=== PATIENT | female | born 1950 | race Caucasian/White ===

== ENCOUNTER → 2020-01-05 12:32 | Outpatient (CLI) | payer MEDICARE, SELFPAY ==
--- NOTE | ~2020-01-05 | CT_ITS ---
EXAMINATION: CT abdomen pelvis w con DATE: 01/05/2020 13:13 INDICATION: Low abdominal pain. Nausea. TECHNIQUE: Computed tomography (CT) of the abdomen and pelvis was performed with 100 cc Omnipaque 350 intravenous contrast. Automated exposure control and iterative reconstruction technique were employe d. Exam dose: 681.76 mGy-cm total exam DLP. COMPARISON: None. FINDINGS: The lung bases are clear of consolidation. Heart size is normal. No pericardial or pleural effusion. Small sliding hiatal hernia. There are scattered hepatic cysts measuring up to approximately 1.3 cm. Status post cholecystectomy. No bile duct or pancreatic duct dilatation. No pancreatic mass lesion or calcification. Normal splenic size. Normal morphology of the adrenal glands. No renal mass lesion. No urinary tract calculus or hydroureteronephrosis. The urinary bladder appears normal. Normal appendix. There is diverticulosis of the left and right colon. The colonic diverticula are particularly numerou s in the sigmoid colon. There is thickening of the wall of the distal sigmoid colon evidence of an approximately 1.6 x 2 cm p eripherally enhancing intramural probable abscess, with adjacent fat stranding, likely due to diverti culitis. Approximately 3.1 x 2.4 cm right adnexal cystic lesion is noted; continued imaging follow-up is recom mended considering the patient's postmenopausal status. Further evaluation with pelvic ultrasound or MR imaging might be considered if this finding does not resolve with treatment for diverticulitis. There is atherosclerotic calcification of the abdominal aorta but no aneurysm. No intraperitoneal or retroperitoneal or pelvic mass lesion or adenopathy or ascites is noted otherwise. Included skeletal structures are unremarkable. IMPRESSION: Sigmoid diverticulitis, including 1.6 x 2 cm intramural sigmoid: abscess, mild surroundi ng fat stranding Diverticulosis of left and right colon Approximately 3.1 x 2.47 and right adnexal cystic lesion; continue follow-up is recommended. If this does not resolve with treatment for diverticulitis, consider further evaluation with pelvic ultrasoun d and/or MR imaging. Small sliding hiatal hernia Status post cholecystectomy Hepatic cysts Reviewed, dictated and finalized at [facility]. Reviewed, dictated and finalized at [facility]. IMPRESSION: Sigmoid diverticulitis, including 1.6 x 2 cm intramural sigmoid: a bscess, mild surrounding fat stranding Diverticulosis of left and right colon Approximately 3.1 x 2.47 and right adnexal cystic lesion; continue follow-up is recommended. If this does not resolve with treatment for diverticulitis, consi charanjit further evaluation with pelvic ultrasound and/or MR imaging. Small sliding hiatal hernia Status post cholecystectomy Hepatic cysts
[2020-01-05 13:05] LABS: Estimated Glomerular Filt Rate > 60
== END ==
PROVIDERS: Visit Provider Physician Assistant
DX: K57.32 Diverticulitis of large intestine without perforation or abscess without bleeding (principal); K76.89 Other specified diseases of liver; Z90.49 Acquired absence of other specified parts of digestive tract
CPT/HCPCS: 36415; 74177; Q9967

== ENCOUNTER 2020-05-11 00:09 | Outpatient (CLI) | payer MEDICARE, SELFPAY ==
[2020-05-11 18:32] LABS: SARS-CoV-2 RNA PCR Negative
== END 2020-05-11 00:10 | disposition home or self-care (01) ==
LOC: ANHCOVIDDT 00:10
PROVIDERS: Visit Provider Surgery
DX: Z01.812 Encounter for preprocedural laboratory examination (principal); Z11.59 Encounter for screening for other viral diseases
CPT/HCPCS: 87635; C9803; U0003

== ENCOUNTER 2020-05-14 02:14 | Day surgery (SDC) | payer MEDICARE, SELFPAY ==
[2020-05-03 12:31] VITALS: BMI 30.2
--- NOTE | 2020-05-14 08:44 | PM.HPGS ---
History of Present Illness History of Present Illness Consent: Risks, benefits, and alternatives of a colonoscopy with possible biopsies have been discussed and questions answered. Patient agrees to proceed with procedure. Chief complaint: diverticulitis Narrative: Hodan Gilliam is a 69 year old white female that presents to the office at the request of KEVIN Reza for an evaluation of diverticulitis. Patient reports having abdominal cramping and bloating in the lower abdomen since 12/25/2019. She reports that when passes gas and having a BM caused pain. Patient reports that at first she was having hard stools but they gradually become soft and ribbon like. Patient had a CT of the abdomen and pelvis on 01/05/2020 at [facility] that showed sigmoid diverticulitis including 1.6 x 2 cm intramural sigmoid: abscess, mild surround fat stranding. Diverticulosis of left and right colon was also reported. Patient was put on Ciprofloxacin 500 mg BID and Metronidazole 500 mg BID since 01/05/2020. She reports since she has been taking the antibiotics she does feel better. She also reports she has been on a clear liquid diet since 01/05/2020 but reports she did start gradually advancing her diet to a low fiber diet and is tolerating this well. She reports having 2 BMs yesterday that were soft. Reports her last colonoscopy was competed about 2 years ago and believes she had diverticulosis and no polyps. we later obtain the colonoscopy report from 03/09/2017 and this confirms her feelings). Patient presents today for diagnostic colonoscopy. The will do biopsies if needed. If she has been feeling okay over the last 2 months. Prep went along unremarkable except for some cramping. Review of Systems Constitutional: Constitutional: Reports no additional constitutional complaints, Reports fatigue and Denies malaise Eyes: Eyes: Denies change in vision and Denies loss of vision ENT: Reports Normal hearing present, Denies change in voice, Denies dizziness, Denies hoarseness and Denies sore throat Cardiovascular: Cardiovascular: Denies chest pain, Denies leg edema and Denies dyspnea Respiratory: Respiratory: Denies cough, Denies dyspnea and Denies wheezing Gastrointestinal: Gastrointestinal: Denies hematochezia, Denies change in bowel habits and Denies heartburn Comments: Patient had an episode of diverticulitis earlier this year. Genitourinary: Genitourinary: Denies urinary frequency and Denies urinary incontinence Neurologic: Reports Normal hearing present, Denies confusion, Denies dizziness, Denies loss of vision, Denies memory loss and Denies seizure-like activity Psychiatric: Psychiatric: Denies confusion, Denies depression and Denies memory loss Endocrine: Endocrine: Denies cold intolerance and Reports fatigue Hematologic/Lymphatic: Hematologic/Lymphatic: Denies easy bleeding and Denies easy bruising Allergic/Immunologic: Allergic/Immunologic: Denies wheezing PMFSH Social History Social History Smoking status: Never smoker Alcohol intake: current Meds Home Medications and Allergies Home Medications Medication Instructions Recorded Confirmed Type alendronate 70 mg tablet 70 mg PO WEEKLY 12/14/19 05/14/20 History cholecalciferol (vitamin D3) 25 1,000 unit PO DAILY 12/14/19 05/14/20 History mcg (1,000 unit) tablet multivitamin 1 tablet PO DAILY 12/14/19 05/14/20 History Allergies Allergy/AdvReac Type Severity Reaction Status Date / Time latex AdvReac Mild ichy Verified 05/14/20 11:45 epinephrine AdvReac Unknown FELT LIKE Verified 05/14/20 11:45 AN ELEPHANT WAS STOMPING ON HER CHEST Exam Const: General: cooperative, healthy appearing, no acute distress, well developed and alert; No confusion Nutritional Appearance: well nourished Orientation/consciousness: patient oriented x3 and No confusion Limitations: no limitations HEN
[2020-05-14 11:40] VITALS: BP 154/63; PULSE 64; RESP 18; TEMP 37; O2SAT 100
--- NOTE | 2020-05-14 11:59 | P.PNAN_ITS ---
Anes - Initial Pre Proc Eval Procedure: Operation Date: 05/14/20 13:00 Proposed Procedures p Colonoscopy - Osmany Hernandez MD Date/Time: 05/14/20 11:59 Surgeon: Osmany Hernandez MD Pre Op Diagnosis: diverticulitis Patient Data Age: 69 Gender: F Height: 5 ft 2 in Weight: 72.3 kg Allergies Allergy/AdvReac Type Severity Reaction Status Date / Time latex AdvReac Mild ichy Verified 05/14/20 11:45 epinephrine AdvReac Unknown FELT LIKE Verified 05/14/20 11:45 AN ELEPHANT WAS STOMPING ON HER CHEST Home Medications Medication Instructions Recorded Confirmed Type alendronate 70 mg tablet 70 mg PO WEEKLY 12/14/19 05/14/20 History cholecalciferol (vitamin D3) 25 1,000 unit PO DAILY 12/14/19 05/14/20 History mcg (1,000 unit) tablet multivitamin 1 tablet PO DAILY 12/14/19 05/14/20 History Patient hx anesthesia problems: none Family hx anesthesia problems: none [facility] Social History Social History Smoking status: Never smoker Alcohol intake: current Anes - Eval Final PreProcedure Day of Procedure 05/14/20 11:59 Patient weight: normal Heart: regular rate and rhythm Lungs: clear to auscultation Airway: Mallampati scale class II Neurological: alert and oriented Last oral intake: >/= 8 hours ASA classification: II Emergent: no Anesthetic plan: proceed Anesthesia type and monitoring: general GIVS and standard monitoring Informed Consent: The patient's anesthetic plan and its attendant risks and benefits were discussed with the patient/family/POA. Questions were solicited and answers provided to the satisfaction of the patient/family/POA.
[2020-05-14] MEDS: LACTATED RINGERS 1,000 ML 150 ML IV CONT (12:02)
[2020-05-14 14:07] VITALS: BP 108/58; PULSE 61; RESP 21; O2SAT 97
[2020-05-14 14:17] VITALS: BP 117/60; PULSE 61; RESP 21; O2SAT 98
[2020-05-14 14:27] VITALS: BP 153/69; PULSE 60; RESP 14; O2SAT 99
== END 2020-05-14 14:55 | disposition home or self-care (01) ==
PROVIDERS: PCP Family Medicine; Visit Provider Surgery
PROC: 0DJD8ZZ Inspection of Lower Intestinal Tract, Via Natural or Artificial Opening Endoscopic (ICD-10-PCS; CPT 45378; principal; 2020-05-14 13:00)
DX: Z09 Encounter for follow-up examination after completed treatment for conditions other than malignant neoplasm (principal); K52.9 Noninfective gastroenteritis and colitis, unspecified; K57.30 Diverticulosis of large intestine without perforation or abscess without bleeding; Z87.19 Personal history of other diseases of the digestive system
CPT/HCPCS: 45380; 87635; 88305; C9803; J2001; J2704; J7120; U0003

== ENCOUNTER 2020-11-12 10:18 | Outpatient (CLI) | payer MEDICARE, SELFPAY ==
--- NOTE | ~2020-11-12 | MM_ITS ---
EXAMINATION: MM screening [facility] BI w dony HISTORY: Screening mammogram TECHNIQUE: Craniocaudal and mediolateral oblique 3-D tomosynthesis images were obtained and synthetic 2-D images were generated. CAD analysis was submitted and interpreted. COMPARISON: 03/03/2018, 02/08/2017, 11/23/2015 bilateral digital screening mammogram examinations BREAST PARENCHYMAL COMPOSITION: There are scattered areas of fibroglandular density. FINDINGS: Stable benign right intramammary lymph nodes. Minimal bilateral benign calcification. There is no evidence of suspicious mass, calcification, or architectural distortion to suggest malignancy in either breast. There has been no suspicious interval change. IMPRESSION: 1. No mammographic evidence of malignancy. 2. Recommend routine screening mammography in one year. BI-RADS Category 2: Benign finding(s). Reviewed, dictated and finalized at location [facility]. 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
== END 2020-11-12 10:19 | disposition home or self-care (01) ==
LOC: ANHIMG 10:21
PROVIDERS: PCP Family Medicine; Visit Provider Physician Assistant
DX: Z12.31 Encounter for screening mammogram for malignant neoplasm of breast (principal)
CPT/HCPCS: 77063; 77067

== ENCOUNTER → 2021-05-01 11:08 | Outpatient (CLI) | payer MEDICARE, SELFPAY ==
--- NOTE | ~2021-05-01 | US_ITS ---
EXAMINATION: US thyroid DATE: 05/01/2021 11:34 INDICATION: Neck pain. Dysphagia. TECHNIQUE: Multiple ultrasound images of the thyroid were obtained. COMPARISON: None. FINDINGS: The right thyroid lobe measures 6.1 x 3.0 x 1.3 cm. The left thyroid lobe measures 5.7 x 2.5 x 1.7 c m. In the right thyroid lobe, there is a 4.7 cm solid, isoechoic, xfpyr-dqll-[id number] nodule with smooth margin without echogenic foci (TI-RADS TR3). In the left thyroid lobe, there is a 3.7 cm solid, isoe choic, hqiqa-hlqy-tpvu nodule with ill-defined margin without echogenic foci (TR3). In the thyroid is thmus, there is a 3.6 cm solid, isoechoic, xydnj-lbek-ysew nodule with ill-defined margin without ech ogenic foci (TR3). IMPRESSION: 1. Multinodular goiter. Consider ultrasound-guided fine-needle aspiration of the 2 largest nodules. Reviewed, dictated and finalized at location [facility]. IMPRESSION: 1. Multinodular goiter. Consider ultrasound-guided fine-needle aspiration of th e 2 largest nodules.
== END ==
PROVIDERS: PCP Family Medicine; Visit Provider Family Medicine
DX: M54.2 Cervicalgia (principal); E04.2 Nontoxic multinodular goiter
CPT/HCPCS: 76536

== ENCOUNTER 2021-05-12 10:22 | Outpatient (CLI) | payer MEDICARE, SELFPAY ==
--- NOTE | ~2021-05-12 | US_ITS ---
EXAMINATION: US FNA w image guidance, US FNA additional DATE: 05/12/2021 11:46 INDICATION: Nontoxic thyroid nodules in the left and right thyroid lobes. TECHNIQUE: A time-out was performed to verify the patient's name, date of , and procedure to be performed . The procedure and its benefits and risks were discussed with the patient. Risks specifically discus sed included bleeding and infection. The patient understood the risks and agreed to proceed. The neck was prepped and draped in the usual sterile manner. Attention was first turned to the left thyroid n odule. 3 mL 1% lidocaine was used for local anesthesia. 6 passes were made with a 25G needle into th e lesion. Appropriate needle location was documented with continuous sonographic guidance. Attention was then turned to the right thyroid nodule. An additional 2 mm of 1% lidocaine was used for local a nesthesia. 6 passes were made with a 20 5G needle into the lesion. Appropriate needle location was do cumented with continuous sonographic guidance. Sterile bandages were applied. There were no immediat e complications. FINDINGS: Grayscale ultrasound images demonstrate biopsy needles advanced into a 4.3 cm TI RADS 3 solid nodule in the inferior left thyroid. On the prior study but was indicated as a 3.6 cm nodule at the isthmus appears on real-time imaging to represent a portion of the left thyroid nodule which extends across t he midline. Subsequent images demonstrate biopsy needles advanced into the previously noted 4.7 cm so lid TI RADS 3 nodule in the inferior right thyroid lobe. IMPRESSION: 1. Successful ultrasound-guided fine needle aspiration of the 4.7 cm TI RADS 3 right thyroid nodule and 4.3 cm TI RADS 3 left thyroid nodule. Reviewed, dictated and finalized at location [facility]. IMPRESSION: 1. Successful ultrasound-guided fine needle aspiration of the 4.7 cm TI RADS 3 right thyroid nodule and 4.3 cm TI RADS 3 left thyroid nodule.
== END 2021-05-12 10:23 | disposition home or self-care (01) ==
LOC: ANHIMG 10:27
PROVIDERS: PCP Family Medicine; Visit Provider Family Medicine
DX: E04.1 Nontoxic single thyroid nodule (principal)
CPT/HCPCS: 10005; 10006; 88173; 88305

== ENCOUNTER 2022-02-26 14:24 | Outpatient (CLI) | payer MEDICARE, SELFPAY ==
--- NOTE | ~2022-02-26 | MM_ITS ---
EXAMINATION: MM screening nargis BI w dony HISTORY: Screening mammogram TECHNIQUE: Craniocaudal and mediolateral oblique 3-D tomosynthesis images were obtained and synthetic 2-D images were generated. CAD analysis was submitted and interpreted. COMPARISON: No prior mammogram is available for comparison at this institution. BREAST PARENCHYMAL COMPOSITION: There are scattered areas of fibroglandular density. FINDINGS: Stable benign circumscribed intramammary lymph node in the posterior upper outer right [address]. There is no evidence of suspicious mass, calcification, or architectural distortion to suggest ma lignancy in either breast. There has been no suspicious interval change. IMPRESSION: 1. No mammographic evidence of malignancy. 2. Recommend routine screening mammography in one year. BI-RADS Category 2: Benign finding(s). Reviewed, dictated and finalized at location [facility].
== END 2022-02-26 14:25 | disposition home or self-care (01) ==
PROVIDERS: PCP Family Medicine; Visit Provider Family Medicine
DX: Z12.31 Encounter for screening mammogram for malignant neoplasm of breast (principal)
CPT/HCPCS: 77063; 77067

== ENCOUNTER 2022-11-05 08:11 | Outpatient (CLI) | payer MEDICARE, SELFPAY ==
[2022-11-05 19:24] LABS: Kit Draw Collected
== END 2022-11-05 08:12 | disposition home or self-care (01) ==
LOC: ANHGOSHLAB 08:14
PROVIDERS: PCP Family Medicine; Visit Provider Family Medicine
DX: E66.3 Overweight (principal); E78.00 Pure hypercholesterolemia, unspecified
CPT/HCPCS: 36415

== ENCOUNTER 2022-12-18 13:30 | Outpatient (RCR) | payer MEDICARE, SELFPAY ==
[2022-11-19 08:03] VITALS: BP_SYST 115; BP_SYST 90
--- NOTE | 2022-11-19 09:03 | PTOPEVAL1 ---
Assessment and note entered by Kade Patel, PT, DPT Evaluation Information Assessment Status Evaluation Diagnosis L arm pain Onset 1 month Subjective Information Pt states for about a month she has not been able to reach behind her back or reach over her head without an increase in pain. She report no ALFREDA. She states she watches her grandson and picks him up but does not recall a sudden start to her pain. Reported Pain Level Pain Score 5: Self Report Assessment PT Clinical Summary Hodan presents to therapy today for her initial evaluation with a diagnosis of a L biceps muscle strain. Today she demonstrates decreased active and passive shoulder motion lou, L > R. She demonstrates active shoulder flexion to 70 deg and abduction to 64 deg on the L, ROM is limited by pain. She also has decreased passive ROM lou. She has a positive painful arc of motion with increased upper trap activation with shoulder elevation. Skilled physical therapy services are indicated to address the deficits noted above, to manage pain, to improve function, and to return to baseline mobility. Plan of Care Interventions Electrical Stimulation,Hot Pack/Cold Pack,Manual Therapy,Neuro Re-education,Patient/Caregiver Educati,Therapeutic Activities,Therapeutic Exercise PT Services Indicated Yes Treatment Frequency and 2x/wk for 4 wks Duration These treatments will address the objective and functional deficits as defined above. The patient will be advanced safely and appropriately in order for the patient to progress towards his/her prior level of function. Additional exercises will be introduced and as well as a comprehensive home exercise program upon discharge, if needed, ?to ensure carryover of functional gains achieved in the clinic. This treatment plan has been reviewed and agreement upon by the patient.
--- NOTE | 2022-12-11 15:47 | PCPTNOTE ---
Patient reports she has to cancel due to family coming in.
[2022-12-18 13:31] VITALS: BP_SYST 115; BP_SYST 95
--- NOTE | 2022-12-18 14:35 | PTOPDC ---
Assessment and note entered by Kade Patel, PT, DPT Evaluation Information Assessment Status Discharge Diagnosis L arm pain Onset 1 month Subjective Information Pt states she feels like she is making very little progress. She states she is still getting sharp pains in her shoulder. She states she can only raise her arm up a little bit higher. She reports 10% improvement. Pt states she would like to follow up with ortho and get an MRI. Reported Pain Level Pain Score 0: Self Report Assessment PT Clinical Summary Hodan presents to therapy today for her progress report following 8 visits of skilled therapy to treat her lou shoulder pain. Today she demonstrates only minimal improvements in her active shoulder motion lou. She has make minimal towards her therapy goals and her pain has not progressed. She would like to follow up with her referring provider to get an ortho consult. She will be discharged at this time. Plan of Care PT Services Indicated No Treatment Frequency and to be discharged, following up with ortho Duration
== END 2022-12-18 15:41 | disposition home or self-care (01) ==
LOC: ANHGOSHPT 13:30
PROVIDERS: PCP Family Medicine; Visit Provider Nurse Practitioner
DX: S46.212D Strain of muscle, fascia and tendon of other parts of biceps, left arm, subsequent encounter (principal)
CPT/HCPCS: 97014; 97110; 97112; 97140; 97161; G0283

== ENCOUNTER → 2023-01-27 08:53 | Outpatient (CLI) | payer MEDICARE, SELFPAY ==
--- NOTE | ~2023-01-27 | MR_ITS ---
EXAMINATION: MR shoulder LT wo con DATE: 01/27/2023 09:55 INDICATION: Left shoulder pain. Rotator cuff tear. TECHNIQUE: Magnetic resonance imaging (MRI) of the left shoulder was performed without intravenous co ntrast. Sequences included axial PD-weighted FS FSE, coronal oblique PD-weighted FS FSE and T2-weight ed FS FSE, and sagittal oblique T2-weighted FS FSE and T1-weighted FSE. COMPARISON: Left shoulder radiographs 01/21/2023 FINDINGS: Coracoacromial arch: The acromion undersurface is curved in morphology (type II). There is severe acromioclavicular joint osteoarthritis. There is mild subacromial/subdeltoid bursitis. Rotator cuff: There is moderate supraspinatus tendinopathy and mild infraspinatus tendinopathy. Teres minor tendon is normal. There is mild subscapularis tendinopathy. The rotator cuff muscle bellies are normal. Biceps tendon and glenoid labrum: Biceps tendon is in bicipital groove. There is mild intra-articular biceps tendinopathy. There is deg enerative tearing of the glenoid labrum. Fluid: There is a small glenohumeral joint effusion. Bones/cartilage: There is cartilage surface irregularity of glenoid and humeral head. There are tiny osteophytes. IMPRESSION: 1. Moderate rotator cuff tendinopathy. No tear. 2. Mild glenohumeral joint chondrosis. 3. Severe acromioclavicular joint osteoarthritis. 4. Mild intra-articular biceps tendinopathy. 5. Small glenohumeral joint effusion. 6. Mild subacromial/subdeltoid bursitis. Reviewed, dictated and finalized at location A.
== END ==
PROVIDERS: PCP Family Medicine; Visit Provider Orthopaedic Surgery
DX: M19.012 Primary osteoarthritis, left shoulder (principal); M25.412 Effusion, left shoulder; M75.52 Bursitis of left shoulder
CPT/HCPCS: 73221

== ENCOUNTER 2023-03-01 07:47 | Outpatient (CLI) | payer MEDICARE, SELFPAY ==
--- NOTE | ~2023-03-01 | MM_ITS ---
EXAMINATION: MM screening [facility] BI w dony HISTORY: Screening mammogram TECHNIQUE: Craniocaudal and mediolateral oblique 3-D tomosynthesis images were obtained and synthetic 2-D images were generated. CAD analysis was submitted and interpreted. COMPARISON: 02/26/2022, 11/12/2020, 03/03/2018 BREAST PARENCHYMAL COMPOSITION: The breasts are almost entirely fatty. FINDINGS: No suspicious mass, calcification, or architectural distortion are identified in either albert ast to suggest malignancy. There has been no suspicious interval change. IMPRESSION: 1. No mammographic evidence of malignancy. 2. Recommend routine screening mammography in one year. BI-RADS Category 1: Negative Reviewed, dictated and finalized at location [facility].
--- NOTE | ~2023-03-01 | DEXA_ITS ---
Bone Density Report Name: KEATON LAUREN Age: 72 Sex: Female Ethnicity: White Date of : 1950 Indication: postmenopausal; screening for osteoporosis; height loss; Referring Provider: YONNY MCMAHAN Study: Bone densitometry was performed. Exam Date: March 01, 2023 Accession number: [id number] Bone Density: Region BMD T-score Z-score Classification AP Spine(L1-L4) 0.756 -2.6 -0.4 Osteoporosis Femoral Neck (Left) 0.791 -0.5 1.4 Normal Total Hip (Left) 0.977 0.3 1.9 Normal Femoral Neck (Right) 0.760 -0.8 1.1 Normal Total Hip (Right) 0.898 -0.4 1.2 Normal Total Hip Mean 0.937 -0.1 1.6 Normal World Health Organization criteria for BMD impression classify patients as: Normal (T-score at or above -1.0), Osteopenia (T-score between -1.0 and -2.5), or Osteoporosis (T-score at or below -2.5). 10-year Fracture Risk: FRAX not reported because: Some T-score for Spine Total or Hip Total or Femoral Neck at or below -2.5 Clinical Information Provided by Patient: Has used the following medications: Vitamin D, Calcium Patient maximum height was 63 Menopause Age: 43 Drinks caffeinated beverages Onset of menses at age 10 Number of children 2 Impression: The patient has osteoporosis, based on the Total Spine T-score. Discussion: INCREASED RISK OF FRACTURE. BONE DENSITY IS UNDESIRABLY LOW AT ONE OR MORE SKELETAL SITES, CONSISTENT WITH POSTMENOPAUSAL OSTEOPOROSIS. This patient's lowest T-score meets the World Health Organization's (WHO) criteria for osteoporosis at one or more sites (T-score -2.5 or below). In untreated patients, the risk of osteoporotic fracture increases approximately two-fold for each 1.0 SD decrease in T-score. Low bone density is not the only risk factor for fracture; also consider factors such as patient's age, frailty or poor health, risk of falling, risk of injury, previous osteoporotic fracture, family history of osteoporosis, cigarette smoking, low body weight, etc. Not everyone with low bone mineral density has osteoporosis; osteomalacia and other metabolic bone disorders should also be considered. Patients who have osteoporosis should be evaluated for specific diseases and conditions (secondary causes) that may cause or contribute to bone loss. The [place] [employer]ocrinologists (AACE) and National Osteoporosis Foundation (NOF) recommend pharmacologic intervention for all postmenopausal women whose T-score is in this range. The patient should follow a healthful lifestyle (good nutrition with adequate calcium and vitamin D, and appropriate weight-bearing exercise). Follow-Up: Consider a repeat BMD and Vertebral Fracture Assessment (VFA) exam in 2 years or sooner if medically necessary, to reassess this patient's status. Reported by: DO on 03/01/2023 8
== END 2023-03-01 07:48 | disposition home or self-care (01) ==
LOC: ANHIMG 07:48
PROVIDERS: PCP Family Medicine; Visit Provider Nurse Practitioner
DX: Z12.31 Encounter for screening mammogram for malignant neoplasm of breast (principal); Z78.0 Asymptomatic menopausal state; M81.0 Age-related osteoporosis without current pathological fracture
CPT/HCPCS: 77063; 77067; 77080

== ENCOUNTER 2023-03-02 08:29 | Outpatient (CLI) | payer MEDICARE, SELFPAY ==
[2023-03-02 14:04] LABS: Hematocrit 36.7 % (37.0-47.0); Hemoglobin 11.5 g/dL (12.0-15.0); Mean Corpuscular HGB Conc 31.3 g/dl (32-36); Mean Corpuscular Volume 95.8 fl (80-100); Mean Platelet Volume 10.6 fl (7.4-10.4); Platelet Count Result 326 k/mm3 (150-375); Red Blood Count 3.83 M/mm3 (4.2-5.4); Red Cell Distribution Width 13.8 % (11.5-14.5); White Blood Count 5.5 K/mm3 (4.5-10.0)
[2023-03-02 14:12] LABS: Alanine Aminotransferase 23 U/L (6-35); Albumin Level 4.1 g/dL (3.5-5.1); Alkaline Phosphatase 49 U/L (38-126); Anion Gap 5 mmol/L (8-16); Aspartate Amino Transferase 39 U/L (14-36); Bilirubin,Total 0.7 mg/dL (0.2-1.3); Blood Urea Nitrogen 13 mg/dL (7-17); Carbon Dioxide 29 mmol/L (22-30); Chloride 106 mmol/L (98-107); Cholesterol 210 mg/dL (0-200); Estimated Glomerular Filt Rate > 60; Glucose 89 mg/dL (65-110); HDL Direct 57 mg/dL; Potassium 4.3 mmol/L (3.4-5.0); Sodium 140 mmol/L (137-145); Triglycerides 110 mg/dL (<150)
[2023-03-02 14:23] LABS: LDL Cholesterol Direct 116 mg/dL
[2023-03-02 14:39] LABS: Vitamin D 25 Hydroxy 40.8 ng/mL
== END 2023-03-02 08:30 | disposition home or self-care (01) ==
LOC: ANHGOSHLAB 08:31
PROVIDERS: PCP Family Medicine; Visit Provider Family Medicine
DX: Z13.6 Encounter for screening for cardiovascular disorders (principal); E78.00 Pure hypercholesterolemia, unspecified; E55.9 Vitamin D deficiency, unspecified; E04.1 Nontoxic single thyroid nodule
CPT/HCPCS: 36415; 80053; 80061; 82306; 84443; 85027

== ENCOUNTER 2023-03-31 15:28 | Outpatient (CLI) | payer MEDICARE, SELFPAY ==
--- NOTE | 2023-03-31 15:34 | ECHO_ITS ---
Patient Info Name: Hodan Gilliam Age: 72 years : 1950 Gender: Female Ht: 62 in Wt: 158 lbs BSA: 1.79 m2 HR: 78 bpm BP: 137 / 74 mmHg Technical Quality: Good Exam Date: 03/31/2023 3:48 PM Exam Location: [facility] Patient Status: Outpatient Admit Date: 03/31/2023 Staff Ordering Physician: Gillian Koo APRN Crime Scene Evidence Technician: Autumn Greenfield RDCS Attending Provider: Gillian Koo APRN Referring Physician: Hanane HARRIS; Exam Type: CA echo doppler color flow Study Info Indications - palpitations Complete two-dimensional, color flow and Doppler transthoracic echocardiogram is performed. Summary 1. Complete two-dimensional, color flow and Doppler transthoracic echocardiogram is performed. 2. Left ventricular chamber dimension is normal. 3. Left ventricular systolic function is normal, estimated at 60-65%. 4. The left ventricular diastolic function is grade II diastolic dysfunction. 5. E/e' 18 is elevated. 6. Global longitudinal strain is normal at -21.6%. 7. Left atrial chamber dimension is mildly enlarged. 8. Bowing of the interatrial septum to the right by 2D and color flow imaging. 9. There is mild aortic valve regurgitation. 10. There is trace tricuspid valve regurgitation. 11. No pulmonary hypertension, estimated pulmonary arterial systolic pressure is 33 mmHg. Left Ventricle E/e' 18 is elevated. Global longitudinal strain is normal at -21.6%. Left ventricular chamber dimension is normal. Left ventricular systolic function is normal, estimated at 60-65%. The left ventricular diastolic function is grade II diastolic dysfunction. Right Ventricle Right ventricular chamber dimension is normal. Right ventricular systolic function is normal. Left Atria Left atrial chamber dimension is mildly enlarged. Right Atria Right atrial chamber dimension is normal. Atrial Septum No obvious interatrial shunt by color doppler. Bowing of the interatrial septum to the right by 2D and color flow imaging. Aortic Valve The aortic valve is trileaflet. There is no aortic valve stenosis. There is mild aortic valve regurgitation. Pulmonic Valve There is no pulmonic regurgitation. Mitral Valve There is no mitral valve stenosis. There is no mitral valve regurgitation. Tricuspid Valve There is trace tricuspid valve regurgitation. No pulmonary hypertension, estimated pulmonary arterial systolic pressure is 33 mmHg. Pericardium/Pleural There is no pericardial effusion. Inferior Vena Cava Normal inferior vena cava with >50% collapse upon inspiration consistent with normal right atrial pressure, 5 mmHg. Aorta The aortic root size at the sinus of Valsalva is normal. Left Ventricular Outflow Tract Name Value Normal LVOT 2D LVOT Diameter 2.0 cm LVOT Doppler LVOT Peak Gradient 8 mmHg LVOT Mean Gradient 5 mmHg LVOT VTI 32 cm LVOT VTI/AV VTI Ratio 1.0 LVOT Stroke Volume 97 ml LVOT CO 19.4 l/min LVOT CI 10.8 l/min/m2 Pulmonic Valve
== END 2023-03-31 15:29 | disposition home or self-care (01) ==
PROVIDERS: PCP Family Medicine; Visit Provider Nurse Practitioner Family
DX: R00.2 Palpitations (principal); I35.1 Nonrheumatic aortic (valve) insufficiency
CPT/HCPCS: 93306

== ENCOUNTER 2023-08-11 09:36 | Emergency (ER) | payer MEDICARE, SELFPAY ==
[2023-08-11] VITALS (7 sets, daily range): BP systolic 114–143; BP diastolic 56–73; PULSE 57–64; RESP 17–20; TEMP 36.6–36.7; O2SAT 94–99
[2023-08-11 10:24] LABS: Basophils Absolute Auto 0.1 K/mm3 (0.0-0.1); Eosinophils Absolute Auto 0.1 K/mm3 (0-0.3); Eosinophils Percent Auto 1.2 % (0-4.4); Hematocrit 37.8 % (37.0-47.0); Hemoglobin 12.3 g/dL (12.0-15.0); Immature Granulocyte Absolute 0.02 K/mm3 (0.00-0.031); Immature Granulocyte Percent A 0.3 % (0-0.5); Lymphocytes Absolute Auto 1.17 K/mm3 (0.9-3.2); Lymphocytes Percent Auto 19.2 % (18.3-44.2); Mean Corpuscular HGB Conc 32.5 g/dl (32-36); Mean Corpuscular Hemoglobin 29.9 pg (26-34); Mean Corpuscular Volume 91.7 fl (80-100); Mean Platelet Volume 10.3 fl (7.4-10.4); Monocytes Absolute Auto 0.8 K/mm3 (0.1-0.6); Monocytes Percent Auto 13.8 % (2.6-8.5); Neutrophils Absolute Auto 3.9 K/mm3 (1.3-6.7); Neutrophils Percent Auto 64.5 % (45.5-73.1); Platelet Count Result 268 k/mm3 (150-375); Red Blood Count 4.12 M/mm3 (4.2-5.4); Red Cell Distribution Width 13.6 % (11.5-14.5); White Blood Count 6.1 K/mm3 (4.5-10.0)
[2023-08-11 10:36] LABS: Alanine Aminotransferase 21 U/L (6-35); Albumin Level 4.4 g/dL (3.5-5.1); Alkaline Phosphatase 46 U/L (38-126); Anion Gap 9 mmol/L (8-16); Aspartate Amino Transferase 27 U/L (14-36); Bilirubin,Total 0.6 mg/dL (0.2-1.3); Blood Urea Nitrogen 12 mg/dL (7-17); Calcium 9.3 mg/dL (8.4-10.2); Carbon Dioxide 19 mmol/L (22-30); Chloride 108 mmol/L (98-107); Estimated Glomerular Filt Rate > 60; Glucose 134 mg/dL (65-110); Lipase 35 U/L (23-300); Potassium 4.1 mmol/L (3.4-5.0); Sodium 136 mmol/L (137-145)
--- NOTE | 2023-08-11 10:40 | ECG_ITS ---
Measurements Intervals [place] Rate: 59 P: 23 [place]: 165 QRS: -39 QRSD: 129 T: 12 QT: 412 QTc: 410 Interpretive Statements SINUS BRADYCARDIA LEFT AXIS DEVIATION [QRS AXIS < -30] RIGHT BUNDLE BRANCH BLOCK [120+ ms QRS DURATION, UPRIGHT V1, 40+ ms S IN I/aVL/V4/V5/V6] ABNORMAL ECG NO PREVIOUS ECG AVAILABLE FOR COMPARISON Electronically Signed On 08-11-2023 18:28:49 CDT by Jerald Curry M.D.
--- NOTE | 2023-08-11 15:13 | ED.GENADULT ---
HPI - General Adult General Chief complaint: Nausea/Vomiting/Diarrhea Stated complaint: weak/vomiting/diarrhea/sob Time Seen by Provider: 08/11/23 14:36 History of Present Illness HPI narrative: 73-year-old female present to the emergency department for evaluation of nausea vomiting and diarrhea. Patient reports that the symptoms started this morning. Patient states when she was having emesis she was having some abdominal cramping but denies any current abdominal pain. Patient reports he also had associated cough. Patient states that her family members have also had similar cough and cold symptoms. Patient has not tested herself for COVID. Related Data Home Medications Medication Instructions Recorded Confirmed cholecalciferol (vitamin D3) 25 1,000 unit PO DAILY 12/14/19 04/21/23 mcg (1,000 unit) tablet multivitamin 1 tablet PO DAILY 12/14/19 04/21/23 lactobacillus combination no.9 4 4,000 mmu cells PO DAILY 12/19/20 04/21/23 billion cell capsule (Adult 50 Plus Probiotic) magnesium tablet PO 12/19/20 04/21/23 omega-3 fatty acids 1,250 mg 1,250 mg PO DAILY 12/19/20 04/21/23 capsule Allergies Allergy/AdvReac Type Severity Reaction Status Date / Time latex AdvReac Mild ichy Verified 08/11/23 14:53 epinephrine AdvReac Unknown FELT LIKE Verified 08/11/23 14:53 AN ELEPHANT WAS STOMPING ON HER CHEST Review of Systems Review of Systems: All systems reviewed & are unremarkable except as noted in HPI and below PMFSH Past Medical History Medical History Age related osteoporosis Elevated AST (SGOT) Heart palpitations Hepatitis C antibody test negative (08/31/17) History of hepatitis Left shoulder pain Sinusitis, acute Surgical History Surgical History History of tubal ligation (~1977) 42 years ago Hx of cholecystectomy (~2011) Family History Family History Mother Hemorrhage tube burst and had a hemorrhage Social History Social History Years smoked: 20 Smoking status: Former smoker Tobacco type: cigarettes Second hand tobacco smoke exposure: No Alcohol intake: never Substance use: never Substance use type: does not use Lack of Transportation: No Lack of Food: Never True Current Housing: I Have Housing Concerned About Future Housing: No Difficulty Paying Gas/Electric Bills: No Difficulty Paying for Meds: No Currently Unemployed: No Education: Trade/Vocational Certificate Difficulty w/ Childcare or Family Care: No Living arrangements: with family Additional living arrangements comments: Occupation/Education: retired Gender identity (if verbalized by the patient): Female Sexual Orientation (if Verbalized by the Patient): Straight or Heterosexual Agree to blood products: Yes Exam Narrative: APPEARANCE: Well appearing, no pain, no distress, well-nourished. HEAD: normocephalic, atraumatic. EYES: PERRLA/EOMI, conjunctivae clear. NOSE: Normal no drainage EARS:TMS clear with good light reflex. THROAT: Pharynx clear, no exudate. NECK: Supple. No adenopathy, no masses. RESPIRATORY: Airway patent, respirations nonlabored. Clear to auscultation bilaterally, no rales, rhonchi, wheezing. CARDIOVASCULAR: Regular rate and rhythm without murmurs rubs or gallops. ABDOMINAL: Soft, nontender, nondistended, normal bowel sounds MUSCULOSKELETAL: Moves all extremities. Strength/ROM intact, No edema, No calf tenderness. NEURO: Alert. Cranial nerves II through XII intact. Grossly intact SKIN: Warm, dry. Normal Color Course Course Emergency Course: 71-year-old female present emerged department for evaluation of cough congestion and nausea vomiting. Patient's nausea vomiting was improved in the ED
[2023-08-11] MEDS: SODIUM CHLORIDE 0.9% IV 1,000 ML 999 ML IV CONT (15:15)
[2023-08-11] MEDS: ONDANSETRON INJ 4 MG/2 ML VIAL IV PUSH (15:15)
[2023-08-11 15:40] LABS: Influenza A QL RT-PCR Negative (Negative); Influenza B QL RT-PCR Negative (Negative); SARS-CoV-2 RNA PCR Positive (Negative)
== END 2023-08-11 16:52 | disposition home or self-care (01) ==
PROVIDERS: Emergency Provider Emergency Medicine; PCP Family Medicine
DX: U07.1 COVID-19 (principal); R11.2 Nausea with vomiting, unspecified; Z87.891 Personal history of nicotine dependence; Z20.822 Contact with and (suspected) exposure to COVID-19
CPT/HCPCS: 36415; 80053; 83690; 85025; 87636; 93005; 96361; 96374; 99284; J2405; J7030

== ENCOUNTER 2023-09-02 08:21 | Outpatient (CLI) | payer MEDICARE, SELFPAY ==
[2023-09-02 11:58] LABS: Basophils Absolute Auto 0.1 K/mm3 (0.0-0.1); Basophils Percent Auto 0.9 % (0.2-1.2); Eosinophils Absolute Auto 0.3 K/mm3 (0-0.3); Eosinophils Percent Auto 3.9 % (0-4.4); Hematocrit 38.1 % (37.0-47.0); Immature Granulocyte Absolute 0.01 K/mm3 (0.00-0.031); Immature Granulocyte Percent A 0.1 % (0-0.5); Lymphocytes Absolute Auto 1.94 K/mm3 (0.9-3.2); Lymphocytes Percent Auto 27.8 % (18.3-44.2); Mean Corpuscular HGB Conc 31.5 g/dl (32-36); Mean Corpuscular Hemoglobin 30.3 pg (26-34); Mean Corpuscular Volume 96.2 fl (80-100); Mean Platelet Volume 10.8 fl (7.4-10.4); Monocytes Absolute Auto 0.7 K/mm3 (0.1-0.6); Monocytes Percent Auto 9.6 % (2.6-8.5); Neutrophils Percent Auto 57.7 % (45.5-73.1); Platelet Count Result 347 k/mm3 (150-375); Red Blood Count 3.96 M/mm3 (4.2-5.4); Red Cell Distribution Width 13.4 % (11.5-14.5)
[2023-09-02 12:37] LABS: Alanine Aminotransferase 17 U/L (6-35); Albumin Level 4.4 g/dL (3.5-5.1); Alkaline Phosphatase 43 U/L (38-126); Anion Gap 8 mmol/L (8-16); Aspartate Amino Transferase 46 U/L (14-36); Bilirubin,Total 0.7 mg/dL (0.2-1.3); Blood Urea Nitrogen 19 mg/dL (7-17); Calcium 9.5 mg/dL (8.4-10.2); Carbon Dioxide 26 mmol/L (22-30); Chloride 106 mmol/L (98-107); Cholesterol 200 mg/dL (0-200); Estimated Glomerular Filt Rate > 60; Glucose 96 mg/dL (65-110); HDL Direct 46 mg/dL; Potassium 4.9 mmol/L (3.4-5.0); Sodium 140 mmol/L (137-145); Triglycerides 97 mg/dL (<150); Vitamin D 25 Hydroxy 23.9 ng/mL
[2023-09-02 12:52] LABS: LDL Cholesterol Direct 111 mg/dL
[2023-09-02 12:54] LABS: Thyroid Stimulating Hormone 0.925 uIU/mL (0.465-4.680)
[2023-09-02 16:59] LABS: Hemoglobin A1C 5.3 % (<5.7)
== END 2023-09-02 08:22 | disposition home or self-care (01) ==
PROVIDERS: PCP Family Medicine; Visit Provider Nurse Practitioner Family
DX: Z00.00 Encounter for general adult medical examination without abnormal findings (principal); Z13.29 Encounter for screening for other suspected endocrine disorder; I10 Essential (primary) hypertension; Z13.220 Encounter for screening for lipoid disorders; R73.03 Prediabetes; E55.9 Vitamin D deficiency, unspecified
CPT/HCPCS: 36415; 80053; 80061; 82306; 83036; 84443; 85025

== ENCOUNTER 2024-04-03 08:28 | Outpatient (CLI) | payer MEDICARE, SELFPAY ==
[2024-04-03 14:59] LABS: Basophils Absolute Auto 0.1 K/mm3 (0.0-0.1); Basophils Percent Auto 0.9 % (0.2-1.2); Eosinophils Absolute Auto 0.3 K/mm3 (0-0.3); Eosinophils Percent Auto 4.1 % (0-4.4); Hematocrit 38.6 % (37.0-47.0); Hemoglobin 11.9 g/dL (12.0-15.0); Immature Granulocyte Absolute 0.01 K/mm3 (0.00-0.031); Immature Granulocyte Percent A 0.2 % (0-0.5); Lymphocytes Absolute Auto 1.78 K/mm3 (0.9-3.2); Lymphocytes Percent Auto 26.8 % (18.3-44.2); Mean Corpuscular HGB Conc 30.8 g/dl (32-36); Mean Corpuscular Hemoglobin 30.2 pg (26-34); Mean Platelet Volume 11.3 fl (7.4-10.4); Monocytes Absolute Auto 0.7 K/mm3 (0.1-0.6); Monocytes Percent Auto 10.1 % (2.6-8.5); Neutrophils Absolute Auto 3.8 K/mm3 (1.3-6.7); Neutrophils Percent Auto 57.9 % (45.5-73.1); Platelet Count Result 321 k/mm3 (150-375); Red Blood Count 3.94 M/mm3 (4.2-5.4); Red Cell Distribution Width 14.2 % (11.5-14.5); White Blood Count 6.6 K/mm3 (4.5-10.0)
[2024-04-03 16:28] LABS: Vitamin D 25 Hydroxy 37.2 ng/mL
[2024-04-03 17:25] LABS: Alanine Aminotransferase 16 U/L (6-35); Albumin Level 4.3 g/dL (3.5-5.1); Alkaline Phosphatase 43 U/L (38-126); Anion Gap 5 mmol/L (4-12); Aspartate Amino Transferase 55 U/L (14-36); Bilirubin,Total 0.6 mg/dL (0.2-1.3); Blood Urea Nitrogen 16 mg/dL (7-17); Calcium 8.9 mg/dL (8.4-10.2); Carbon Dioxide 26 mmol/L (22-30); Chloride 108 mmol/L (98-107); Cholesterol 192 mg/dL (0-200); Estimated Glomerular Filt Rate > 60; Glucose 87 mg/dL (65-110); HDL Direct 52 mg/dL; Potassium 4.4 mmol/L (3.4-5.0); Sodium 139 mmol/L (137-145); Triglycerides 115 mg/dL (<150)
[2024-04-03 17:36] LABS: LDL Cholesterol Direct 114 mg/dL
[2024-04-03 19:46] LABS: Hemoglobin A1C 5.1 % (<5.7)
== END 2024-04-03 08:29 | disposition home or self-care (01) ==
LOC: ANHGOSHLAB 08:29
PROVIDERS: PCP Family Medicine; Visit Provider Nurse Practitioner Family
DX: Z00.00 Encounter for general adult medical examination without abnormal findings (principal); E55.9 Vitamin D deficiency, unspecified; Z13.220 Encounter for screening for lipoid disorders; R73.03 Prediabetes
CPT/HCPCS: 36415; 80053; 80061; 82306; 83036; 85025

== ENCOUNTER 2024-09-07 15:24 | Outpatient (CLI) | payer MEDICARE, SELFPAY ==
--- NOTE | ~2024-09-07 | MM_ITS ---
EXAMINATION: MM screening nargis BI w dony HISTORY: Screening mammogram TECHNIQUE: Craniocaudal and mediolateral oblique 3-D tomosynthesis images were obtained and synthetic 2-D images were generated. CAD analysis was submitted and interpreted. COMPARISON: 03/01/2023 02/26/2022, 11/12/2020 BREAST PARENCHYMAL COMPOSITION:Not Dense. The breasts are almost entirely fatty FINDINGS: No suspicious mass, calcification, or architectural distortion are identified in either albert ast to suggest malignancy. There has been no suspicious interval change. IMPRESSION: No mammographic evidence of malignancy. Recommend routine screening mammography in one year. BI-RADS Category 1: Negative Reviewed, dictated and finalized at location . NICAL SALES SUPPORT SPECIALIST
== END 2024-09-07 15:25 | disposition home or self-care (01) ==
PROVIDERS: PCP Family Medicine; Visit Provider Nurse Practitioner
DX: Z12.31 Encounter for screening mammogram for malignant neoplasm of breast (principal)
CPT/HCPCS: 77063; 77067

== ENCOUNTER 2024-09-19 07:01 | Outpatient (CLI) | payer MEDICARE, SELFPAY ==
--- NOTE | ~2024-09-19 | MR_ITS ---
EXAMINATION: MR hip LT wo con DATE: 09/19/2024 07:56 INDICATION: Left hip pain. TECHNIQUE: Magnetic resonance imaging (MRI) of the left hip was performed without intravenous contras t. COMPARISON: left hip radiographs 07/24/24 FINDINGS: Bones/cartilage: There is thoracolumbar levoscoliosis. There is mild lumbar spondylosis. There is an 11 mm lesion of i ncreased T2-weighted signal intensity in intertrochanteric region of proximal left femur. The hip joel nts demonstrate tiny osteophytes. Small [id number] images of left hip demonstrate partial-thicknes s cartilage loss. Labrum: There is a tear of the left acetabular labrum. Fluid: There is no hip joint effusion. There is moderate bilateral trochanteric bursitis. Soft tissues: There is diverticulosis of the colon without evidence of diverticulitis. There is a 3.6 cm cyst in th e right adnexa, likely benign. There are partial tears of the hamstring origins bilaterally. There is a partial tear of right gluteus minimus tendon. The gluteus medius tendon is normal. There is a part ial tear of left gluteus minimus tendon. There is mild left gluteus medius tendinopathy. IMPRESSION: 1. Mild osteoarthritis of the hips. 2. Partial tears of the bilateral gluteus minimus tendons and hamstring tendon origins. 3. Moderate bilateral trochanteric bursitis. 4. 11 mm lesion in intertrochanteric region of proximal left femur. In the absence of known malignanc y, this is likely a benign lesion such as an enchondroma or fibrous dysplasia. 5. 3.6 cm cyst in the right adnexa, likely benign. Pelvis ultrasound is recommended in one year. Reviewed, dictated and finalized at location A. [employer] IMPRESSION: 1. Mild osteoarthritis of the hips. 2. Partial tears of the bilateral gluteus minimus tendons and hamstring tendon origins. 3. Moderate bilateral trochanteric bursitis. 4. 11 mm lesion in intertrochanteric region of proximal left femur. In the abse nce of known malignancy, this is likely a benign lesion such as an enchondroma or fibrous dysplasia. 5. 3.6 cm cyst in the right adnexa, likely benign. Pelvis ultrasound is recomme nded in one year.
== END 2024-09-19 07:02 | disposition home or self-care (01) ==
LOC: MICIMG 07:01
PROVIDERS: PCP Family Medicine; Visit Provider Nurse Practitioner Family
DX: M16.0 Bilateral primary osteoarthritis of hip (principal); M70.62 Trochanteric bursitis, left hip; M70.61 Trochanteric bursitis, right hip
CPT/HCPCS: 73721

== ENCOUNTER 2024-10-06 08:53 | Outpatient (CLI) | payer MEDICARE, SELFPAY ==
[2024-10-06 14:01] LABS: Alanine Aminotransferase 19 U/L (6-35); Albumin Level 4.2 g/dL (3.5-5.1); Alkaline Phosphatase 47 U/L (38-126); Anion Gap 3 mmol/L (4-12); Aspartate Amino Transferase 60 U/L (14-36); Bilirubin,Total 0.6 mg/dL (0.2-1.3); Blood Urea Nitrogen 21 mg/dL (7-17); Carbon Dioxide 28 mmol/L (22-30); Chloride 107 mmol/L (98-107); Cholesterol 186 mg/dL (0-200); Estimated Glomerular Filt Rate > 60; Glucose 91 mg/dL (65-110); HDL Direct 59 mg/dL; Potassium 4.3 mmol/L (3.4-5.0); Sodium 138 mmol/L (137-145); Triglycerides 79 mg/dL (<150)
[2024-10-06 14:12] LABS: LDL Cholesterol Direct 91 mg/dL
[2024-10-06 14:18] LABS: Hemoglobin A1C 5.5 % (<5.7)
[2024-10-06 14:27] LABS: Vitamin D 25 Hydroxy 36.1 ng/mL
== END 2024-10-06 08:54 | disposition home or self-care (01) ==
PROVIDERS: PCP Family Medicine; Visit Provider Nurse Practitioner
DX: E78.00 Pure hypercholesterolemia, unspecified (principal); E55.9 Vitamin D deficiency, unspecified; R73.03 Prediabetes
CPT/HCPCS: 36415; 80053; 80061; 82306; 83036

== ENCOUNTER 2024-11-14 08:41 | Outpatient (CLI) | payer MEDICARE, SELFPAY ==
[2024-11-15 11:24] LABS: CA-125 12 U/mL (<35)
== END 2024-11-14 08:42 | disposition home or self-care (01) ==
PROVIDERS: PCP Family Medicine; Visit Provider Nurse Practitioner Obstetrics & Gynecology
DX: N83.209 Unspecified ovarian cyst, unspecified side (principal)
CPT/HCPCS: 36415; 86304

== ENCOUNTER 2024-11-14 09:01 | Outpatient (CLI) | payer MEDICARE, SELFPAY ==
--- NOTE | ~2024-11-14 | US_ITS ---
Pelvic ultrasound. Clinical History: Ovarian cyst Technique: Realtime transabdominal scanning of the pelvis was performed. Color flow Doppler and Doppl er spectral analysis were performed. Findings: The uterus is anteverted. The endometrial stripe is poorly seen. No focal mass is identifi ed. The right ovary measures 4.0 x 4.9 x 3.7 cm. Probable right ovarian cyst measures 3.5 cm in diameter. The left ovary is not visualized.. There is no evidence of free fluid in the cul de sac. Impression: Probable 3.5 cm right ovarian cyst. Left ovary not seen. Reviewed, dictated and finalized at location . TER Impression: Probable 3.5 cm right ovarian cyst. Left ovary not seen.
== END 2024-11-14 09:02 | disposition home or self-care (01) ==
LOC: GOSHIMG 09:02
PROVIDERS: PCP Nurse Practitioner; Visit Provider Nurse Practitioner Obstetrics & Gynecology
DX: N83.209 Unspecified ovarian cyst, unspecified side (principal)
CPT/HCPCS: 76856

== ENCOUNTER 2025-04-13 09:43 | Outpatient (CLI) | payer MEDICARE, SELFPAY ==
[2025-04-13 18:26] LABS: Hemoglobin 11.8 g/dL (12.0-15.0); Mean Corpuscular HGB Conc 31.9 g/dl (32-36); Mean Corpuscular Hemoglobin 30.6 pg (26-34); Mean Corpuscular Volume 95.9 fl (80-100); Mean Platelet Volume 11.4 fl (7.4-10.4); Platelet Count Result 324 k/mm3 (150-375); Red Blood Count 3.86 M/mm3 (4.2-5.4); Red Cell Distribution Width 13.2 % (11.5-14.5); White Blood Count 7.1 K/mm3 (4.5-10.0)
[2025-04-13 18:40] LABS: Hemoglobin A1C 5.5 % (<5.7)
[2025-04-13 18:44] LABS: Alanine Aminotransferase 18 U/L (6-35); Albumin Level 4.4 g/dL (3.5-5.1); Alkaline Phosphatase 45 U/L (38-126); Anion Gap 8 mmol/L (4-12); Aspartate Amino Transferase 38 U/L (14-36); Bilirubin,Total 0.4 mg/dL (0.2-1.3); Blood Urea Nitrogen 19 mg/dL (7-17); Calcium 9.2 mg/dL (8.4-10.2); Carbon Dioxide 26 mmol/L (22-30); Chloride 106 mmol/L (98-107); Cholesterol 213 mg/dL (0-200); Estimated Glomerular Filt Rate > 60; Glucose 86 mg/dL (65-110); HDL Direct 56 mg/dL; Potassium 4.6 mmol/L (3.4-5.0); Sodium 140 mmol/L (137-145); Total Protein 7.2 g/dL (6.3-8.2); Triglycerides 92 mg/dL (<150)
[2025-04-13 18:55] LABS: LDL Cholesterol Direct 120 mg/dL
[2025-04-13 19:04] LABS: Free T4 Free Thyroxine 1.07 ng/dL (0.78-2.19); Vitamin D 25 Hydroxy 60.5 ng/mL
[2025-04-13 19:12] LABS: Thyroid Stimulating Hormone 0.792 uIU/mL (0.465-4.680)
== END 2025-04-13 09:44 | disposition home or self-care (01) ==
LOC: ANHGOSHLAB 09:44
PROVIDERS: PCP Nurse Practitioner; Visit Provider Nurse Practitioner
DX: E04.1 Nontoxic single thyroid nodule (principal); I10 Essential (primary) hypertension; E78.00 Pure hypercholesterolemia, unspecified; E55.9 Vitamin D deficiency, unspecified; R73.03 Prediabetes
CPT/HCPCS: 36415; 80053; 80061; 82306; 83036; 84439; 84443; 85027

== ENCOUNTER 2025-05-14 12:29 | Outpatient (CLI) | payer MEDICARE, SELFPAY ==
--- NOTE | ~2025-05-14 | US_ITS ---
EXAMINATION: US pelvic complete INDICATION: Follow-up right ovarian cyst. Comparison:11/14/2024 TECHNIQUE: Multiple transabdominal sonographic images of the pelvis performed. FINDINGS: The uterus measures 4.8 x 3.5 x 2.7 cm. The endometrial complex measures . The ovaries are not definitively visualized. There is a right adnexal cyst measuring 3.6 x 2.8 x 3 cm . There is no free fluid in the pelvis. There are no abnormal masses seen on either side. IMPRESSION: 1. Right adnexal cyst measuring 3.6 cm. Findings most compatible with physiologic follicular corpus l uteal cyst, although in postmenopausal woman malignancy is not excluded. Correlation with CA-125 leve ls recommended. Differential diagnosis includes cystic ovarian neoplasm. Reviewed, dictated and finalized at location A. IMPRESSION: 1. Right adnexal cyst measuring 3.6 cm. Findings most compatible with physiolog ic follicular corpus luteal cyst, although in postmenopausal woman malignancy i s not excluded. Correlation with CA-125 levels recommended. Differential diagno sis includes cystic ovarian neoplasm.
== END 2025-05-14 12:30 | disposition home or self-care (01) ==
LOC: GOSHIMG 12:30
PROVIDERS: PCP Family Medicine; Visit Provider Nurse Practitioner Obstetrics & Gynecology
DX: N83.201 Unspecified ovarian cyst, right side (principal)
CPT/HCPCS: 76856

== ENCOUNTER 2025-09-13 09:21 | Outpatient (CLI) | payer MEDICARE, SELFPAY ==
--- NOTE | ~2025-09-13 | MM_ITS ---
EXAMINATION: MM screening nargis BI w dony HISTORY: Screening TECHNIQUE: Craniocaudal and mediolateral oblique 3-D tomosynthesis images were obtained and synthetic 2-D images were generated. CAD analysis was submitted and interpreted. COMPARISON: Comparison to multiple prior studies sequentially, with oldest reviewed study dated , 03/03/2018 BREAST PARENCHYMAL COMPOSITION: Not Dense: The breasts are almost entirely fatty. FINDINGS: There is no evidence of suspicious mass, calcification, or architectural distortion to suggest malignancy in either breast. IMPRESSION: 1. No mammographic evidence of malignancy. 2. Recommend routine screening mammography in one year. BI-RADS Category 1: Negative Reviewed, dictated and finalized at location B. ERIZER
--- OUTSIDE RECORDS SUMMARY | 2025-09-13 10:37 | XMS_ITS | Clinical Summary ---
Author Organization [facility] [address] Address [address] [place] [id number] Care Team Providers Care Shuttle Repairer Name Role Phone Libby Pisano DO Primary Care Provider [phone]- [phone] Allergies No known active allergies Medications lisinopriL (PRINIVIL,ZESTR IL) 2.5 mg tablet Take 2.5 mg by mouth daily 2 Active albuterol HFA (ProAir HFA) 90 mcg/actuation inhalerIndicati ons:Wheezing Inhale 2 puffs every 4 (four) hours as needed for wheezing or shortness of breath 8.5 g 2 Active Active Problems No known active problems Social History Tobacco Use Types Packs/Day Years Used Date Smoking Tobacco: Former Cigarettes Tobacco Cessation:Counseling Given: Not Answered Personal Safety Answer Date Recorded Getting School Help Needed Not on file 12/25 Comments Unknown Sex and Gender Information Value Date Recorded Sex Assigned at Not on file Legal Sex Female 10:33 AM CDT Gender Identity Not on file Sexual Orientation Not on file Last Filed Vital Signs Vital Sign Reading Time Taken Comments Blood Pressure 149/83 08/22/2022 11:59 AM CDT Pulse 91 08/22/2022 11:59 AM CDT Temperature 37.1 C (98.7 F) 08/22/2022 11:59 AM CDT Respiratory Rate 18 08/22/2022 11:59 AM CDT Oxygen Saturation 96% 08/22/2022 11:59 AM CDT Inhaled Oxygen Concentration - - Weight 73 kg (161 lb) 08/22/2022 11:59 AM CDT Height 160 cm (5' 3) 08/22/2022 11:59 AM CDT Body Mass Index 28.52 08/22/2022 11:59 AM CDT Plan of Treatment Not on file Insurance Care Teams Shuttle Repairer Relationship Specialty Start Date End Date Libby Pisano DO PCP - General Family Medicine 08/22/22
== END 2025-09-13 09:22 | disposition home or self-care (01) ==
LOC: ANHFOHIMG 09:22
PROVIDERS: PCP Nurse Practitioner; Visit Provider Nurse Practitioner
DX: Z12.31 Encounter for screening mammogram for malignant neoplasm of breast (principal)
CPT/HCPCS: 77063; 77067

== ENCOUNTER 2025-10-05 08:34 | Outpatient (CLI) | payer MEDICARE, SELFPAY ==
[2025-10-05 18:09] LABS: Hematocrit 35.4 % (37.0-47.0); Hemoglobin 11.8 g/dL (12.0-15.0); Mean Corpuscular HGB Conc 33.3 g/dl (32-36); Mean Corpuscular Hemoglobin 31.6 pg (26-34); Mean Corpuscular Volume 94.9 fl (80-100); Platelet Count Result 291 k/mm3 (150-375); Red Blood Count 3.73 M/mm3 (4.2-5.4); White Blood Count 6.3 K/mm3 (4.5-10.0)
[2025-10-05 18:44] LABS: Alanine Aminotransferase 17 U/L (6-35); Albumin Level 4.3 g/dL (3.5-5.1); Alkaline Phosphatase 47 U/L (38-126); Anion Gap 3 mmol/L (4-12); Aspartate Amino Transferase 25 U/L (14-36); Bilirubin,Total 0.8 mg/dL (0.2-1.3); Blood Urea Nitrogen 22 mg/dL (7-17); Calcium 9.6 mg/dL (8.4-10.2); Carbon Dioxide 27 mmol/L (22-30); Chloride 107 mmol/L (98-107); Cholesterol 203 mg/dL (0-200); Estimated Glomerular Filt Rate > 60; Glucose 102 mg/dL (65-110); HDL Direct 53 mg/dL; Potassium 4.8 mmol/L (3.4-5.0); Sodium 137 mmol/L (137-145); Total Protein 7.0 g/dL (6.3-8.2); Triglycerides 82 mg/dL (<150)
[2025-10-05 19:19] LABS: Hemoglobin A1C 5.6 % (<5.7); Thyroid Stimulating Hormone 0.900 uIU/mL (0.465-4.680)
[2025-10-05 19:49] LABS: Free T4 Free Thyroxine 1.25 ng/dL (0.78-2.19)
== END 2025-10-05 08:35 | disposition home or self-care (01) ==
PROVIDERS: PCP Nurse Practitioner; Visit Provider Nurse Practitioner
DX: R73.03 Prediabetes (principal); E78.00 Pure hypercholesterolemia, unspecified; E04.9 Nontoxic goiter, unspecified; D64.9 Anemia, unspecified; E55.9 Vitamin D deficiency, unspecified
CPT/HCPCS: 36415; 80053; 80061; 82306; 83036; 84439; 84443; 85027

== ENCOUNTER 2025-10-17 10:31 | Outpatient (CLI) | payer MEDICARE, SELFPAY ==
--- OUTSIDE RECORDS SUMMARY | 2025-10-17 10:34 | XMS_ITS | Clinical Summary ---
Author Organization [facility] [address] [place] [id number] Care Team Providers Care Data Migration Lead Name Role Phone Libby Pisano DO Primary Care Provider [phone]- [phone] Allergies No known active allergies Medications lisinopriL [...] Treatment Not on file Insurance Care Teams Data Migration Lead Relationship Specialty Start Date End Date Libby Pisano DO PCP - General Family Medicine 08/22/22
== END 2025-10-17 10:32 | disposition home or self-care (01) ==
PROVIDERS: PCP Nurse Practitioner; Visit Provider Nurse Practitioner
DX: I49.9 Cardiac arrhythmia, unspecified (principal)
CPT/HCPCS: 93242